=== PATIENT | male | born 1935 | race Caucasian/White ===

== ENCOUNTER → 2018-02-27 | Outpatient (CLI) | payer OTHER ==
[~2018-02-27] MED LIST: ACEON4 MG PO; ASPIRIN325 PO; ATENOLOL 25 MG25 M1 PO; HYDROCODON-ACE1 EACH PO; LEVOTHYROXIN0.088 MG PO; NIASPAN ER 101000 M1 PO; NIASPAN PO; NITROGLYCERIN0.4 MG PO; OSELB75 PO; PLAVIX 75 MG TA75 MG PO; ZOCOR 20 MG TAB20 M1 PO; ZOLOFT50 MG PO
== END ==
LOC: PUL 06:12
DX: J44.9 Chronic obstructive pulmonary disease, unspecified (principal)

== ENCOUNTER 2018-11-06 08:44 | Inpatient (IN) | payer OTHER ==
[~2018-11-06] VITALS: Ht 188 cm; Wt 99.6 kg
[2018-11-06] VITALS (16 sets, daily range): BP systolic 90–164; BP diastolic 43–98
--- NOTE | ~2018-11-06 | HC ---
[facility] [place] [address] CONSULTATION Name: LUIS BERMUDEZ Room #: 247-P ADM IN M.R.#: [id number] Admission: 11/06/18 Attend Phys: Carlos Lima MD Discharge: Date of : 33 Report #: [id number] THIS REPORT FOR: //name// CC: Carlos Lima DATE OF SERVICE: 11/07/2018 REASON FOR CONSULTATION: Acute kidney injury. HISTORY OF PRESENT ILLNESS: The patient is an 83-year-old who presented to his primary care physician on 11/05/2018 thinking that he has ingested his synthetic tooth. X-ray was done and this showed that the foreign body was in the small bowel with no evidence of small bowel obstructions or perforation. He represented to the office on 11/06/2018 reporting significant nausea and vomiting and was admitted and found to have small bowel obstruction. On presentation to the Emergency Room, his creatinine was 1.7. Last creatinine in our records was back in 2010 and this was in the normal range. The patient is known to have extensive past medical history including peripheral vascular disease, status post left femoral endarterectomy, status post cardiac bypass. He also had a right iliac stent. He is known to have hypertension. He was not aware of any previous kidney problems per the family members that were present when I evaluated him. The patient went to the OR and had a resection of his small bowel. Postoperatively, the patient's condition deteriorated and it does look like that he developed an aspiration. His creatinine has gone up to 2.0 after being hypotensive and receiving the contrast load. 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 PAST MEDICAL HISTORY: 1. Peripheral vascular disease. 2. Hypertension. 3. Coronary artery disease. 4. Hypothyroidism. 5. Post cholecystectomy. 6. Post CABG. 7. Post left femoral endarterectomy. 8. 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 9. Post right iliac stent. FAMILY HISTORY: Significant for hypertension. SOCIAL HISTORY: Family reported no drug or alcohol abuse. REVIEW OF SYSTEMS: Unable to obtain the review of systems from the patient as the patient is currently intubated. [address] [address] CONSULTATION Name: LUIS BERMUDEZ YUE Room #: 247-P [facility] IN M.R.#: [id number] Admission: 11/06/18 Attend Phys: Carlos Lima MD Discharge: Date of : 33 Report #: [id number] MEDICATIONS: 1. Levothyroxine. 2. Atenolol. 3. Simvastatin. 4. Alendronate. PHYSICAL EXAMINATION: GENERAL: When evaluated, the patient on Levophed 20 mcg. VITAL SIGNS: Blood pressure was 112/77, temperature was 36.5. ET tube present. HEAD AND NECK: Central lines present. CHEST: Decreased air entry bilaterally with crackles bilaterally. CARDIOVASCULAR: Regular with no rub detected. ABDOMEN: Surgical binder present. LOWER EXTREMITIES: +1 edema. LABORATORY DATA: Reviewed. White blood cell count 19.5. Sodium 137, potassium 4.7, chloride 104, bicarbonate 19, BUN 40, creatinine 2.0. CT scan reviewed. ASSESSMENT, IMPRESSION AND PLAN: 1. Acute kidney injury. 2. Status post intestinal surgery for a foreign body ingestion. 3. Extensive peripheral vascular disease with a concern of endoleak in his right common iliac stent. 4. His acute kidney injury is due to the nephrotoxic, hypotensive acute tubular necrosis. He received significant amount of contrast that has contributed to his rising creatinine. He has a baseline creatinine of 1.7 when he arrived into the Emergency Room. I will talk with Dr. Lima about his previous creatinine values. We will send appropriate acute kidney injury workup. 5. Continue with hemodynamic support including IV fluids, pressors. 6. I will reformulate his IV fluid to address his acidosis. 7. Continue with antibiotics for his aspiration pneumonitis. 8. Cardiology and interventional radiology are following regarding his right common iliac stent endoleak. 9. Discussed with his daughter, Lorelei at length. No dialysis is indicated at this point. We will continue to follow. By: 53 33 Umu Agustin MD /nt
[2018-11-06 09:17] LABS: BUN 38 mg/dL (7-18); CREATININE 1.7 mg/dL (0.7-1.3)
[2018-11-06] MEDS ORDERED: ZOLOFT25 MG PO (12:19)
[2018-11-06] MEDS ORDERED: ALENDRONATE SOD70 MG PO (12:20)
[2018-11-06 13:29] LABS: ALBUMIN 4.5 g/dL (3.4-5.0); ANION GAP 13 mmol/L (7-16); CALCIUM 10.8 mg/dL (8.5-10.1); CHLORIDE 101 mmol/L (98-107); CO2 26 mmol/L (21-32); GLUCOSE 126 mg/dL (74-106); POTASSIUM 4.2 mmol/L (3.5-5.1); SGOT 37 U/L (15-37); SGPT 46 U/L (30-65); SODIUM 140 mmol/L (136-145); TOTAL BILIRUBIN 2.4 mg/dL (<0.1-1.0); TOTAL PROTEIN 8.4 g/dL (6.4-8.2)
[2018-11-06 13:44] LABS: HEMATOCRIT 55.3 % (42.0-52.0); HEMOGLOBIN 19.3 gm/dL (14.0-18.0); MCH 34.7 pg (26.0-34.0); MCHC 34.9 g/dL (28.0-37.0); MCV 99.6 fL (80.0-100.0); RBC 5.56 mil/uL (4.50-6.00); RDW 13.7 % (10.5-14.5); WBC 14.7 thou/uL (4.0-11.0)
--- NOTE | 2018-11-06 14:36 | NUR ---
ADMITTED PT UNDER 'S CARE, DIRECT ADMISSION FROM MD'S OFFICE. ADMIT DX SBO DUE TO FOREIGN OBJECT INGESTION. PT ARRIVED IN W/C. AXOX4. FAIR HISTORIAN OF HIS HEALTH. PER PT, HE SWALLOWED IMPLANT TOOTH ON SUNDAY. VSS UPON ARRIVAL. PT WAS PUT ON NPO PER 'S ORDER. GENERAL SURGERY(SBO) AND IR (ENDOVASULAR STENT LEAK) WERE CONSULTED. AFTER BEING EVALUATED BY GENERAL SURGERY, EMERGENCY LAP POSSIBLE OPEN SURGERY WAS SCHEDULED. TALKED TO THE PT AND HIS DAIGHTER AT BEDSIDE. IV IS PRESENT ON LFA, NEWLY PUT IN 22G. PT WAS TAKEN DOWN TO SURGERY SHORTLY AFTER.
[2018-11-06 15:42] LABS: BE(vivo) -2.2 mmol/L (-2 to +3); HCO3 24.8 mmol/L (22.0-26.0); PCO2 49.5 mmHg (35.0-45.0); sO2 99.7 % (92.0-98.0)
[2018-11-06 15:44] LABS: pH 7.317 (7.360-7.450)
[2018-11-06 17:42] LABS: BE(vivo) -10.3 mmol/L (-2 to +3); HCO3 17.8 mmol/L (22.0-26.0); PCO2 46.8 mmHg (35.0-45.0); sO2 60.3 % (92.0-98.0)
[2018-11-06 17:43] LABS: PO2 38.1 mmHg (80.0-100.0); pH 7.198 (7.360-7.450)
[2018-11-06 18:27] LABS: BE(vivo) -11.1 mmol/L (-2 to +3); HCO3 18.9 mmol/L (22.0-26.0); PCO2 56.5 mmHg (35.0-45.0); sO2 68.9 % (92.0-98.0)
[2018-11-06 18:28] LABS: PO2 46.3 mmHg (80.0-100.0); pH 7.142 (7.360-7.450)
[2018-11-06 18:32] LABS: ABSOLUTE NEUTROPHILS 3.4 thou/uL (1.4-8.2); BASOPHILS 0.3 % (0.0-2.0); HEMATOCRIT 57.7 % (42.0-52.0); HEMOGLOBIN 19.5 gm/dL (14.0-18.0); LYMPHOCYTES 38.8 % (24.0-44.0); MCH 34.8 pg (26.0-34.0); MCHC 33.9 g/dL (28.0-37.0); MCV 102.8 fL (80.0-100.0); MONOCYTES 1.6 % (1.0-8.0); PLATELET COUNT 143 thou/uL (150-400); POLYS 58.3 % (36.0-66.0); RBC 5.62 mil/uL (4.50-6.00); RDW 13.9 % (10.5-14.5); WBC 5.9 thou/uL (4.0-11.0)
[2018-11-06 18:39] LABS: CREATININE 1.8 mg/dL (0.7-1.3); POTASSIUM 4.2 mmol/L (3.5-5.1)
[2018-11-06 18:45] LABS: ALBUMIN 3.2 g/dL (3.4-5.0); MAGNESIUM 1.7 mg/dL (1.8-2.4); TOTAL BILIRUBIN 1.9 mg/dL (<0.1-1.0); TOTAL PROTEIN 5.7 g/dL (6.4-8.2)
[2018-11-06 21:07] LABS: BE(vivo) -6.4 mmol/L (-2 to +3); HCO3 18.5 mmol/L (22.0-26.0); PCO2 35.8 mmHg (35.0-45.0); PO2 58.4 mmHg (80.0-100.0); pH 7.332 (7.360-7.450); sO2 88.8 % (92.0-98.0)
[2018-11-06 21:50] LABS: CALCIUM 7.8 mg/dL (8.5-10.1); CREATININE 1.7 mg/dL (0.7-1.3); POTASSIUM 3.8 mmol/L (3.5-5.1)
--- NOTE | 2018-11-06 23:00 | NUR ---
PT ADMITED TO ICU POST OP. ARRIVED ON LEVOPHED AND PROPOFOL. BP IN THE LOW 70S AND 80S. LEVOPHED TITRATED TO KEEP BP ABOVE 90. RADIAL ARTLINE IN PLACE. VENTURA CATH. DR. PETERS AT BEDSIDE UPON PT ARRIVAL. FAMILY AT BEDSIDE DURING THE NIGHT. WILL CONTINUE TO MONITOR.
[2018-11-07] VITALS (61 sets, daily range): BP systolic 93–133; BP diastolic 54–82
[2018-11-07 05:23] LABS: HCO3 15.5 mmol/L (22.0-26.0); PCO2 34.2 mmHg (35.0-45.0); PO2 75.5 mmHg (80.0-100.0); sO2 93.6 % (92.0-98.0)
[2018-11-07 05:24] LABS: pH 7.275 (7.360-7.450)
[2018-11-07 05:35] LABS: CALCIUM 7.6 mg/dL (8.5-10.1); POTASSIUM 4.7 mmol/L (3.5-5.1)
--- NOTE | 2018-11-07 05:43 | NUR ---
pt sedated on vent. propofol ongoing at 25mcgs. opens eyes, doesn't follow simple commands currently. low grade temp. morphine given for pain management. on levophed at 15 mcgs for bp, titrated during the night. hannon in place, output noted. 3 abd lap sites c/d/i. will continue to monitor patient
[2018-11-07 05:47] LABS: ABSOLUTE NEUTROPHILS 16.7 thou/uL (1.4-8.2); BASOPHILS 0.2 % (0.0-2.0); EOSINOPHILS 0.1 % (0.0-3.0); HEMATOCRIT 53.7 % (42.0-52.0); HEMOGLOBIN 17.9 gm/dL (14.0-18.0); LYMPHOCYTES 8.8 % (24.0-44.0); MCH 33.9 pg (26.0-34.0); MCHC 33.3 g/dL (28.0-37.0); MCV 101.6 fL (80.0-100.0); MONOCYTES 5.2 % (1.0-8.0); PLATELET COUNT 118 thou/uL (150-400); POLYS 85.7 % (36.0-66.0); RBC 5.29 mil/uL (4.50-6.00); RDW 13.8 % (10.5-14.5); WBC 19.5 thou/uL (4.0-11.0)
--- NOTE | 2018-11-07 08:33 | EKG ---
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 : 1935 Requested By: Izaiah Anglin Order Number: [id number] MD: Sherman Kenney Measurements Intervals [place] Rate: 119 P: 237 [place]: 93 QRS: 114 QRSD: 140 T: 36 QT: 432 QTc: 609 Interpretive Statements Baseline artifact limits interpretation Possible Sinus or ectopic atrial tachycardia RBBB and LPFB Compared to ECG 05/04/2014 14:20:45 Heart rate has increased Electronically Signed On 11-07-2018 8:32:59 FORMULATION TECHNICIAN by Sherman Kenney [email or web address] <ELECTRONICALLY SIGNED> By: Sherman Kenney MD, [facility] 11/07/18 0832 1804 180 Sherman Kenney MD, [facility] /EPI
[2018-11-07 09:14] LABS: BE(vivo) -8.2 mmol/L (-2 to +3); HCO3 17.1 mmol/L (22.0-26.0); PCO2 35.4 mmHg (35.0-45.0); PO2 118.4 mmHg (80.0-100.0); pH 7.301 (7.360-7.450)
--- NOTE | 2018-11-07 16:17 | NUR ---
CM ASSESSMENT: CASE OPENED FOR DC PLANNING. CLINICAL INFO REVIEWED. PT ADMITTED WITH SBO AFTER SWALLOWING PART OF HIS BRIDGE. PT IS POST EX LAP WITH ASPIRATION AND RESP FAILURE. ON PRESSORS AND VENT FIO2 100% AND 14 PEEP. PT'S DTR GEORGINA AT BEDSIDE. SHE IS AN RN AT [employer] MANY YEARS. SHE RELATES PT LIVES ALONE IN HOUSE, INDEPENDENT WITH ADLS, DRIVES, ACTIVE. CM TO FOLLOW.
--- NOTE | 2018-11-07 17:02 | O ---
[facility] [place] [address] OPERATIVE REPORT Name: LUIS BERMUDEZ Room #: 247-P ADM IN M.R.#: [id number] Admission: 11/06/18 Attend Phys: Carlos Lima MD Discharge: Date of : 33 Report #: [id number] THIS REPORT FOR: //name// CC: Carlos Lima MD DATE OF SERVICE: 11/06/2018 SURGEON: Manjeet Vences MD ADJUNCT ENGLISH INSTRUCTOR: None. PREOPERATIVE DIAGNOSES: 1. Small-bowel obstruction secondary to ingested foreign body. 2. Coronary artery disease. 3. Peripheral vascular disease. POSTOPERATIVE DIAGNOSES: 1. Small-bowel obstruction secondary to ingested foreign body. 2. Coronary artery disease. 3. Peripheral vascular disease. PROCEDURE: 1. Diagnostic laparoscopy. 2. Laparoscopic segmental small bowel resection. ANESTHESIA: General endotracheal anesthesia and local anesthetic. ESTIMATED BLOOD LOSS: 5 mL. SPECIMEN: Segment of small bowel/ileum. COMPLICATIONS: None appreciated. INDICATIONS FOR PROCEDURE: This is an 83-year-old male, patient of Dr. Carlos Lima, who inadvertently swallowed a dental appliance/tooth with bridge unknowingly 3 days ago. When he realized his tooth was gone, he was unable to find it. The patient developed abdominal distention with worsening nausea and vomiting over the past 2 days. He was seen in Dr. Lima's office where he underwent a KUB showing a foreign body located in the right lower quadrant of his abdomen that did not clear on a followup study today in Dr. Lima's office. The patient has since been admitted. CT revealed changes consistent with a small-bowel obstruction secondary to the foreign body located in the distal small bowel. 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 The case was discussed with Dr. Rowe [facility] [address] [place] [address] OPERATIVE REPORT Name: LUIS BERMUDEZ Room #: 247-P ADM IN ..#: [id number] Admission: 11/06/18 Attend Phys: Carlos Lima MD Discharge: Date of : 33 Report #: [id number] Anabel, who has managed the patient in the past and notes that the aneurysm is stable over the past several years with little to no concern of aneurysm rupture and plans for elective management in the future. The patient presents now for diagnostic laparoscopy with removal of the foreign body, possible bowel or colon resection. OPERATIVE FINDINGS: Upon entrance into the abdominal cavity, the bowel was distended. By running the bowel distally, I was able to identify a mass-like area where the bowel was proximally dilated and distally decompressed. A firm mass was palpable within the small bowel in this area. After delivering the mass, I was able to resect a short segment of small bowel (distal ileum) and perform a stapled 75 mm JORDAN stapled anastomosis that was tension free and palpably patent. No other significant intra-abdominal pathology was seen. At the conclusion of the operation, sponge, needle, and instrument counts were correct. Upon opening the specimen on the back table, the tooth with its associated bridge was found within the specimen. It had caused a significant inflammatory reaction in the wall of the bowel that caused the obstruction. Of note, the patient had an aspiration episode on induction in the operating room. Anesthesia suctioned a minimal amount of fluid through the patient's endotracheal tube (a few milliliters) and his oxygen saturations remained at or near 100% throughout the entire operation. Postoperatively, the patient had difficulty with tachypnea and hypoxia. His ABGs showed a significant acidosis and he required reintubation in the recovery room. DESCRIPTION OF PROCEDURE IN DETAIL: After the risks, benefits, and expectations of the operation were discussed in detail with the patient and his daughter, informed consent was obtained. The patient was identified in the preoperative holding area. He was given IV antibiotics as documented in the chart in line with SCIP metrics. The patient was then taken to the operating room and he was placed in the supine position. SCDs were placed on the patient's bilateral lower extremities and pneumatic compression was initiated. The patient was then given IV sedation and while attempting to intubate, the patient had an aspiration episode. Several 100 mL of fluid was suctioned from the patient's endogastric tube. The patient was stabilized with good oxygen saturations and maintenance of his blood pressure. He was ultimately intubated. The patient's abdomen was then prepped and draped in the standard sterile fashion. A time-out was performed to identify the correct patient and procedure. Local anesthetic was infiltrated into the skin and subcutaneous tissue infraumbilically where a small vertical incision was made. The fascia was grasped and a small fascial incision was made. A 5 mm Visiport was placed intraperitoneally with a 0-degree angled laparoscope. Pneumoperitoneum was achieved with insufflation of carbon dioxide to 15 mmHg. A 30-degree angled [facility] [address] [place] [address] OPERATIVE REPORT Name: LUIS BERMUDEZ Room #: 247-P ADM IN M.R.#: [id number] Admission: 11/06/18 Attend Phys: Carlos Lima MD Discharge: Date of : 33 Report #: [id number] laparoscope was then inserted. A suprapubic 5 mm and left lower quadrant 5 mm port were each placed under direct visualization after local anesthetic was infiltrated into the skin and subcutaneous tissue and appropriately sized incisions were made. Findings are as noted above. The patient was placed in the Trendelenburg position, rotated slightly to his left. The bowel was run from the proximal aspect distally (from dilated bowel to nondilated bowel). The point of obstruction was identified. The small bowel in this area was free and able to be delivered to the midline of the abdomen. Local anesthetic was infiltrated into the skin and subcutaneous tissue where the vertical midline incision was extended inferiorly several centimeters. Electrocautery was used to dissect through the subcutaneous tissue down to fascia. The fascia was then opened along the length of the incision, as was the peritoneum directly over the nonconductive visual entry port. The Tank wound protector was then placed and the small bowel was grasped and delivered externally. The mass was palpably patent. Decision was made to resect this portion of bowel as the mass did not move within the lumen of the bowel. Windows were made in the mesentery with electrocautery above and below the mass in the planned area of transection. Blue load JORDAN staplers were used to staple and divide the small bowel in this area. The mesentery was divided with the EnSeal energy device with good hemostasis. The section of bowel was then removed to be sent for specimen. A [id number] functional end-to-end anastomosis was then created with the 75 mm JORDAN stapler. The antimesenteric corners of the staple line were aligned and a 3-0 PDS suture was used to approximate the bowel. The corners of the antimesenteric staple line were then excised and each limb of the blue load 75 mm JORDAN stapler was passed into each limb of the small bowel. The stapler was then connected and fired to create an antimesenteric anastomosis. The common enterotomy was approximated with Allis clamps. A blue load 60 mm TX stapler was then used to staple off the common enterotomy. The excess tissue was excised and the stapler was removed. The anastomosis was palpably patent. A simple interrupted 3-0 PDS suture was placed at the crotch of the anastomosis for reinforcement. The mesenteric window was closed with a running 3-0 PDS suture to prevent internal herniation. The staple line was imbricated with interrupted 3-0 PDS sutures as well. There was no tension on the anastomosis. The connected bowel was then replaced within the abdominal cavity. The Tank cap was then placed over the wound protector and the abdominal cavity was reinsufflated. The abdominal cavity was entered laparoscopically and the anastomosis was stable. There was good hemostasis within the abdominal cavity. No other significant pathology was seen. The 5 mm ports were then removed under direct visualization. The Tank wound protector was removed from the abdominal cavity. A running 0 PDS suture was then used to close the lower midline fascia. A running subcuticular 4-0 Monocryl suture and Dermabond were used to close the skin incision. The port site incisions were closed with interrupted [address] [address] OPERATIVE REPORT Name: LUIS BERMUDEZ Room #: 247-P [facility] IN M.R.#: [id number] Admission: 11/06/18 Attend Phys: Carlos Lima MD Discharge: Date of : 33 Report #: [id number] subcuticular 4-0 Monocryl sutures and Dermabond as well. The patient tolerated the procedure well. He was awakened, extubated, and taken to the recovery room in stable condition with no apparent intraoperative complications. The patient did require reintubation in the recovery room by Anesthesia after he was found to be tachypneic and audibly wheezing. The patient will be transferred to the Intensive Care Unit for respiratory and fluid monitoring. <ELECTRONICALLY SIGNED> By: Manjeet Vences MD, FACS 11/07/18 1702 180 183 Manjeet Vences MD, FACS /nt
[2018-11-07 17:32] LABS: URINE BLOOD TRACE (Negative); URINE CLARITY CLEAR; URINE COLOR YELLOW; URINE GLUCOSE-RANDOM* NEGATIVE (Negative); URINE KETONES TRACE (Negative); URINE LEUKOCYTES NEGATIVE (Negative); URINE NITRITE NEGATIVE (Negative); URINE PROTEIN (DIPSTICK) 1+ (Negative); URINE SPECIFIC GRAVITY 1.025 (1.005-1.035)
[2018-11-07 17:35] LABS: ICTOTEST (BILI CONFIRMATORY) Negative (Negative); URINE BILIRUBIN NEGATIVE (Negative); URINE CREATININE-RANDOM* 275.8 mg/dL
[2018-11-07 17:40] LABS: URINE SODIUM-RANDOM* <5 mmol/L
[2018-11-07 17:45] LABS: BACTERIA 1-9 Few /HPF (None Seen); CASTS None Seen /LPF (None Seen); CRYSTALS None Seen /LPF (None Seen); SQUAMOUS None Seen /LPF (0-3); URINE RBC 0-2 Rare /HPF (0-2); URINE WBC None Seen /HPF (0-5)
--- NOTE | 2018-11-07 19:05 | NUR ---
ASSUMED CARE OF PT AT 0645. TITRATE LEVO AND PROPOFOL GTT. ATTEMPT TO WEAN DOWN VENT SETTINGS. WAKES, FSC DOES NOT NOD YES/NO. FAMILY AT BEDSIDE, WANT TO MEET WITH DR PETERS TOMORROW MORNING. 1L FLUID BOLUS TO HELP KEEP MAP >65. NO PROGRESS TOWARD POC.
[2018-11-08] VITALS (22 sets, daily range): BP systolic 87–132; BP diastolic 48–73
--- NOTE | 2018-11-08 03:15 | NUR ---
AT APPROXIMATELY 0200AM, PT WENT TACHY,HRIN THE 150S. BP PRESSURES DROPPED TO THE 60S. BEFOREHAND PT HR WERE IN THE 90S, AND BP IN THE LOW 100S WHILE ON 5MCGS OF LEVOPHED. AND EKG WAS OBTAIN. CALLED DR. PETERS AND SADIE. ORDERS WERE RECIEVED FOR AMIO GTT.WILL CONTINUE TO MONITOR PT.
[2018-11-08 06:09] LABS: ALBUMIN 2.3 g/dL (3.4-5.0); CREATININE 1.8 mg/dL (0.7-1.3); PHOSPHORUS 1.9 mg/dL (2.5-4.9); POTASSIUM 3.5 mmol/L (3.5-5.1)
--- NOTE | 2018-11-08 06:21 | NUR ---
PT SEDATED ON VENT. TOLERATING VENT SETTINGS. MORPHINE GIVEN FOR COMFORT. LOW GRADE TEMP. FOLLOW SIMPLE COMMANDS ON SEDATION VACATION. ON PROPOFOL AT 35 MCGS/KG/HR. ON LEVOPHED AT 5 MCGS/HR FOR BP SUPPORT. URINE OUTPUT NOTED. RESTRAINST IN PLACE. ON AMIO GTT AT 1MG/MIN. WILL CONTINUE TO MONITOR.
[2018-11-08 06:39] LABS: HEMATOCRIT 45.3 % (42.0-52.0); MCH 33.5 pg (26.0-34.0); MCV 101.5 fL (80.0-100.0); RBC 4.46 mil/uL (4.50-6.00); RDW 14.2 % (10.5-14.5); WBC 22.1 thou/uL (4.0-11.0)
[2018-11-08 06:40] LABS: HEMOGLOBIN 14.9 gm/dL (14.0-18.0)
[2018-11-08 06:43] LABS: CREATININE 1.8 mg/dL (0.7-1.3); POTASSIUM 3.5 mmol/L (3.5-5.1)
[2018-11-08 07:18] LABS: ABSOLUTE NEUTROPHILS 19.4 thou/uL (1.4-8.2)
[2018-11-08 07:20] LABS: PLATELET COUNT 88 thou/uL (150-400)
[2018-11-08 07:31] LABS: BE(vivo) 0.7 mmol/L (-2 to +3); HCO3 25.1 mmol/L (22.0-26.0); PCO2 39.5 mmHg (35.0-45.0); PO2 70.5 mmHg (80.0-100.0); pH 7.421 (7.360-7.450); sO2 94.5 % (92.0-98.0)
--- NOTE | 2018-11-08 08:43 | EKG ---
[address] [place] [address] ELECTROCARDIOGRAM REPORT Name: LUIS BERMUDEZ Room #: 247-P ADM IN M.R.#: [id number] Admission: 11/06/18 Attend Phys: Carlos Lima MD Discharge: Date of : 33 Report #: [id number] THIS REPORT FOR: //name// [facility] Test Date: 2018-11-08 Test Time: 02:12:54 Pat Name: LUIS BERMUDEZ Department: Room: 247 P Gender: M Supervisor Long Goods: JUDI : 1935 Requested By: Carlos Lima Order Number: [id number] MD: Sherman Kenney Measurements Intervals [place] Rate: 97 P: 84 TN: 175 QRS: 101 QRSD: 132 T: -43 QT: 367 QTc: 466 Interpretive Statements Sinus rhythm Right bundle branch block Compared to ECG 11/06/2018 18:04:29 Heart rate has slowed Electronically Signed On 11-08-2018 8:42:53 CREDIT CORRESPONDENCE CLERK by Sherman Kenney [email or web address] <ELECTRONICALLY SIGNED> By: Sherman Kenney MD, [facility] 11/08/1842 1 1 Sherman Kenney MD, [facility] /EPI
--- NOTE | 2018-11-08 09:24 | 2DMMODE ---
[facility] [place] [address] 2 D/M-MODE ECHOCARDIOGRAM Name: JEIMYYANELILUISLUIS [place] Room #: 247-P [facility] IN M.R.#: [id number] Admission: 11/06/18 Attend Phys: Carlos Lima, Discharge: Date of : 33 Date of Service: 11/08/18 0924 Report #: [id number] THIS REPORT FOR: //name// APPROVED REPORT Study performed: 11/08/2018 08:32:18 EXAM: Comprehensive 2D, Doppler, and color-flow Echocardiogram Patient Location: ICU Room #: [facility] Status: routine BSA: 2.28 HR: 77 bpm BP: 107/68 mmHg Rhythm: NSR Other Information Study Quality: Poor/no apical window/limited parasternal window Technically limited study due to patient on vent in ICU.. Indications SVT. History of CABG, HTN 2D Dimensions IVSd: 11.47 (7-11mm) LVOT Diam: 24.37 (18-24mm) LVDd: 39.04 mm PWd: 9.64 (7-11mm) Ascending Ao: 33.53 (22-36mm) LVDs: 27.93 (25-40mm) Aortic Root: 37.31 mm Aortic Valve AoV Peak Michael.: 0.91 m/s AO Peak Gr.: 3.33 mmHg Mitral Valve E/A Ratio: 0.7 MV Decel. Time: 276.33 ms MV E Max Michael.: 0.40 m/s MV A Michael.: 0.56 m/s MV PHT: 80.14 ms Pulmonary Valve PV Peak Michael.: 0.81 m/s PV Peak Gr.: 2.61 mmHg [facility] [address] [address] 2 D/M-MODE ECHOCARDIOGRAM Name: LUIS BERMUDEZ [place] Room #: [address] [place] [address] IN .R.#: [id number] Admission: 11/06/18 Attend Phys: Carlos Lima, Discharge: Date of : 33 Date of Service: 11/08/18 0924 Report #: [id number] Tricuspid Valve TR Peak Michael.: 2.18 m/s RAP Estimate: 15.00 mmHg TR Peak Gr.: 18.95 mmHg PA Pressure: 34.00 mmHg Left Ventricle The left ventricle is normal size. Regional wall motion is not well visualized but grossly normal. There is normal left ventricular wall thickness. Left ventricular systolic function appears grossly normal. LVEF is 55%. Mild diastolic dysfunction is present (impaired relaxation pattern). Right Ventricle The right ventricle is normal size. The right ventricular systolic function is normal. Atria The left atrium size is normal. The right atrium size is normal. Aortic Valve The aortic valve is sclerotic. Trace to mild aortic regurgitation. There is no aortic valvular stenosis. Mitral Valve Mild mitral annular calcification. Trace mitral regurgitation. Tricuspid Valve The tricuspid valve is normal in structure. Trace to mild tricuspid regurgitation. Estimated PAP is 25mmHg. Pulmonic Valve Moderate pulmonic regurgitation. Great Vessels The aortic root is normal in size. The ascending aorta is normal in size. IVC is dilated and collapses <50% with inspiration. Pericardium There is no pericardial effusion. <Conclusion> Technically limited study [facility] [address] [place] [address] 2 D/M-MODE ECHOCARDIOGRAM Name: LUIS BERMUDEZ [place] Room #: [facility] IN M.R.#: [id number] Admission: 11/06/18 Attend Phys: Carlos Lima, Discharge: Date of : 33 Date of Service: 11/08/18923 Report #: [id number] Left ventricular systolic function appears grossly normal. Regional wall motion is not well visualized but grossly normal. LVEF is 55%. The aortic valve is sclerotic. Trace to mild aortic regurgitation, no stenosis. Mild mitral annular calcification. Trace mitral regurgitation. Trace to mild tricuspid regurgitation. Estimated pulmonary artery pressure of 25mmHg. There is no pericardial effusion. <ELECTRONICALLY SIGNED> By: Sherman Kenney MD, [facility] 11/08/18923 3 0924 Sherman Kenney MD, FACC /INF
[2018-11-08 17:32] LABS: ALBUMIN 2.2 g/dL (3.4-5.0); CREATININE 1.6 mg/dL (0.7-1.3); PHOSPHORUS 2.8 mg/dL (2.5-4.9); POTASSIUM 3.3 mmol/L (3.5-5.1)
--- NOTE | 2018-11-08 18:30 | NUR ---
END OF SHIFT NOTE. PT REMAINS ON VENT. PEEP 14 TOLORATING WELL. 02 WEANED DOWN TO 60%. LEVOPHED AT 1MCG/MIN. MORE STABLE THIS PM. DIURESED FROM LASIX. REPLACING K THIS PM. SURGICAL SITE STABLE.
[2018-11-09] VITALS (72 sets, daily range): BP systolic 98–134; BP diastolic 57–83
[2018-11-09 01:51] LABS: BE(vivo) 0.2 mmol/L (-2 to +3); HCO3 24.3 mmol/L (22.0-26.0); PCO2 37.4 mmHg (35.0-45.0); PO2 61.6 mmHg (80.0-100.0); sO2 92.4 % (92.0-98.0)
[2018-11-09 05:49] LABS: ABSOLUTE NEUTROPHILS 17.1 thou/uL (1.4-8.2); BASOPHILS 0.1 % (0.0-2.0); HEMATOCRIT 39.2 % (42.0-52.0); MCH 33.6 pg (26.0-34.0); MCHC 33.1 g/dL (28.0-37.0); MCV 101.5 fL (80.0-100.0); MONOCYTES 4.5 % (1.0-8.0); PLATELET COUNT 78 thou/uL (150-400); POLYS 87.4 % (36.0-66.0); RBC 3.86 mil/uL (4.50-6.00); WBC 19.6 thou/uL (4.0-11.0)
[2018-11-09 05:52] LABS: BE(vivo) 0.5 mmol/L (-2 to +3); HCO3 24.3 mmol/L (22.0-26.0); PCO2 36.4 mmHg (35.0-45.0); PO2 70.1 mmHg (80.0-100.0); pH 7.442 (7.360-7.450); sO2 94.8 % (92.0-98.0)
[2018-11-09 05:56] LABS: ALBUMIN 2.1 g/dL (3.4-5.0); CALCIUM 6.7 mg/dL (8.5-10.1); CREATININE 1.4 mg/dL (0.7-1.3); PHOSPHORUS 2.4 mg/dL (2.5-4.9); POTASSIUM 3.5 mmol/L (3.5-5.1)
[2018-11-09 06:43] LABS: LARGE PLATELETS OCCASIONAL; PLATELET ESTIMATE DECREASED
--- NOTE | 2018-11-09 07:52 | NUR ---
PT SEDATED ON 45 MCGS OF PROPOFOL. NO APPARENT PAIN. FOLLOW SIMPLE COMMANDS. AFEBRILE. OFF LEVOPHED AT 0430 AM. BP STABLE. NG IN PLACE, OUTPUT NOTED. ABD LAPSITE INTACT AND DRY. URINE OUTPUT NOTED. FREQUENT TURNS AND ORAL CARE. AGB RESULTS CALLED INTO DR. PETERS. WILL CONTINUE TO MONITOR.
[2018-11-10] VITALS (27 sets, daily range): BP systolic 113–145; BP diastolic 54–75
[2018-11-10 05:22] LABS: ALBUMIN 2.1 g/dL (3.4-5.0); CALCIUM 6.7 mg/dL (8.5-10.1); CREATININE 1.3 mg/dL (0.7-1.3); PHOSPHORUS 2.2 mg/dL (2.5-4.9); POTASSIUM 3.2 mmol/L (3.5-5.1)
--- NOTE | 2018-11-10 06:24 | NUR ---
PT REMAINS STABLE IN THIS SHIFT. CONTINUE TO BE ON VENT AND LIGHTLY SEDATED. FOLLOW FEW COMMANDS ONCE LIGHTEN UP PROPOFOL. RHYTHM AND BP REMAIN STABLE. ETT/NGT REMAIN INPLACE ANC CONTINUE TO FUNCTION PROPERLY. VENTURA TO DD. HE MADE 1450 CC WITH IN 12 HRS. SLOWLY PROGRESSING TOWARD GOALS.
[2018-11-10 08:41] LABS: BE(vivo) 0.5 mmol/L (-2 to +3); HCO3 23.8 mmol/L (22.0-26.0); PCO2 34.4 mmHg (35.0-45.0); PO2 72.3 mmHg (80.0-100.0); pH 7.458 (7.360-7.450); sO2 95.4 % (92.0-98.0)
[2018-11-10 17:35] LABS: MAGNESIUM 2.5 mg/dL (1.8-2.4); POTASSIUM 3.3 mmol/L (3.5-5.1)
--- NOTE | 2018-11-10 19:23 | NUR ---
END OF SHIFT NOTE. PT MEDICATED X 1 WITH MS FOR PAIN TODAY. SEDATED LIGHTLY ON DIPRIVAN. VSS. DIURESING. CALLED DR. BROWER [facility] THIS EVENING. AWAITING CALL BACK. REMIANS ON 10 OF PEEP ON THE VENT.
[2018-11-11] VITALS (25 sets, daily range): BP systolic 133–172; BP diastolic 59–91
[2018-11-11 05:36] LABS: ALBUMIN 2.3 g/dL (3.4-5.0); CALCIUM 6.8 mg/dL (8.5-10.1); CREATININE 1.1 mg/dL (0.7-1.3); PHOSPHORUS 2.3 mg/dL (2.5-4.9); POTASSIUM 3.4 mmol/L (3.5-5.1)
--- NOTE | 2018-11-11 06:19 | NUR ---
END OF SHIFT OF SUMMARY: Pt has remained stable throughout this shift. Monitor remains sinus rhythm, sinus bradycardia with intermittent BBB. Heart rates 55-70. Pt remains on vent with FiO2 50% and peep 10, sat 96-100%. Lungs remain clear, diminished at bases. NG has scant amount bile drainage. Bowel sounds remain hypoactive. Laporotomy incision are clean, dry and intact. Urine output adequate. Pt spontaneously opens eyes, able to follow simple commands though very weak, nods yes/no appropriately.
[2018-11-11 11:25] LABS: BE(vivo) 2.1 mmol/L (-2 to +3); HCO3 25.6 mmol/L (22.0-26.0); PCO2 36.6 mmHg (35.0-45.0); PO2 72.2 mmHg (80.0-100.0); pH 7.462 (7.360-7.450); sO2 95.4 % (92.0-98.0)
--- NOTE | 2018-11-11 11:50 | NUR ---
DR. CAMEJO HERE. EXTUBATED PER RT. 40% FACE SHIELD.
--- NOTE | 2018-11-11 19:54 | NUR ---
End of shift note. Pt extubated today. Some hemoptisis noted. chest xray done. dr. espino aware. vss. neuro sluggish speech but intact.
[2018-11-12] VITALS (23 sets, daily range): BP systolic 121–176; BP diastolic 65–96
[2018-11-12 05:37] LABS: ALBUMIN 2.2 g/dL (3.4-5.0); CALCIUM 6.8 mg/dL (8.5-10.1); CREATININE 1.1 mg/dL (0.7-1.3); PHOSPHORUS 2.9 mg/dL (2.5-4.9); POTASSIUM 3.8 mmol/L (3.5-5.1)
[2018-11-12 05:40] LABS: HEMATOCRIT 41.6 % (42.0-52.0); HEMOGLOBIN 13.8 gm/dL (14.0-18.0); MCH 33.3 pg (26.0-34.0); MCHC 33.1 g/dL (28.0-37.0); MCV 100.6 fL (80.0-100.0); RBC 4.14 mil/uL (4.50-6.00); RDW 13.5 % (10.5-14.5); WBC 11.1 thou/uL (4.0-11.0)
--- NOTE | 2018-11-12 06:24 | NUR ---
AOX3, CONFUSED AT TIMES. APPROPIATE, RESTLESS DURING THE NIGHT. TALKED TO BUSINESS SERVICES ADMINISTRATOR MEDS ORDERED AND GIVEN WITH LITTLE RELIEF. ON OPTIFLOW AT 55% FIO2, SATS ABOVE 90%. AFEBRILE, VSS. VENTURA IN PLACE, OUTPUT NOTED. NG TO LIS. ABD INCISIONS C/D/I.NO COMPLAINS PRESENTLY. PT SLOWLY PROGRESSING TOWARDS GOALS. WILL CONTINUE TO MONITOR.
--- NOTE | 2018-11-12 08:33 | NUR ---
ASSESSMENT COMPLETED AT SHIFT CHANGE, SEE ASSESSMENT FOR DETAILS. ALERT/ORIENTED, SOMETIMES FORGETFUL, DENIES PAIN, SB, OPTIFLOW-LITERS/MIN-46, TAKING DEEP BREATHS/COUGHING AND/OR USING INCENTIVE SPIROMETER WHILE SPLINTING ABD, NG WITH BILE DRAINAGE, ABD SOFT, VENTURA WITH ADEQUATE URINE OUTPUT.
--- NOTE | 2018-11-12 15:54 | NUR ---
PT UP TO CHAIR WITH USE OF GAIT BELT AND 2 ASSIST. WITH COAXING AND PHYSICAL SUPPORT, PT ABLE TO BRIEFLY STRAIGHTEN HIS KNEES DURING TRANSFER. UP IN CHAIR 20 MINUTES THEN BACK TO BED WITH SUPPORT OF 2-3 RN'S. PT CONTINUING TO TAKE DEEP BREATHS AND/OR USE INCENTIVE SPIROMETER. SEVERAL FAMILY MEMBERS PRESENT TO VISIT AND PROVIDE PT SUPPORT. PT DOZING THIS AFTERNOOON. SLOWLY PROGRESSING.
[2018-11-13] VITALS (23 sets, daily range): BP systolic 106–171; BP diastolic 67–89
[2018-11-13 05:53] LABS: HEMATOCRIT 43.6 % (42.0-52.0); MCH 34.7 pg (26.0-34.0); MCHC 34.5 g/dL (28.0-37.0); MCV 100.6 fL (80.0-100.0); RBC 4.33 mil/uL (4.50-6.00); RDW 13.5 % (10.5-14.5); WBC 10.3 thou/uL (4.0-11.0)
[2018-11-13 06:08] LABS: ALBUMIN 2.3 g/dL (3.4-5.0); CALCIUM 7.2 mg/dL (8.5-10.1); CREATININE 0.9 mg/dL (0.7-1.3); MAGNESIUM 2.4 mg/dL (1.8-2.4); POTASSIUM 3.8 mmol/L (3.5-5.1); TOTAL BILIRUBIN 1.9 mg/dL (<0.1-1.0); TOTAL PROTEIN 5.4 g/dL (6.4-8.2)
--- NOTE | 2018-11-13 06:58 | NUR ---
Pt rested off and on through the night with stable VS. PRN morphine given with desired effect achieved. SpO2 adequate on current FiO2 and pt encouraged frequently with pulmonary toileting. Large amount of urine output for shift and NGT drainage minimal with no c/o nausea. Am lab results noted, continue with POC.
--- NOTE | 2018-11-13 09:19 | NUR ---
Nutrition: NG still with drainage. NPO x 7 days. If unable to remove NG tube and advance diet today, REC start standard TPN to run at 80 ML/hr if pt able to tolerate this amount of fluid. Noted ST eval is ordered. Pt extubated on 11/11.
--- NOTE | 2018-11-13 12:18 | NUR ---
PLACED CALL TO DR. PARKER PER DR. CAMEJO'S RECOMMENDATION TO NOTIFY HIM OF PT'S HAVING "A RUSHING AIR" SOUND IN HIS LEFT EAR. PT'S DAUGHTER REQUESTING DR. PARKER TO COME TO VIEW PT'S EAR.
--- NOTE | 2018-11-13 13:40 | NUR ---
CALLED DR. PARKER'S OFFICE. SPOKE WITH NURSE, SHE STATED SHE WOULD PAGE DR. PARKER REGARDING DAUGHTER-GEORGINA'S REQUEST TO OBSERVE PT AND ASSESS HIS EAR.
--- NOTE | 2018-11-13 19:15 | NUR ---
PT PROGRESSED TODAY. GENERALLY WEAK HOWEVER PT ABLE TO USE BOTH HANDS TO OBTAIN WATER CUP/ORAL SWAB ON OWN TO RINSE HIS MOUTH. L UPPER EXTREMITY SLIGHTLY WEAKER AND SLIGHTLY LEANS TO L SIDE OF CHAIR. PT IN CHAIR AND REPOSITIONED CHAIR FREQUENTLY PER PT PREFERENCE. COMPLEXION IMPROVING TO PINK. DENIES PAIN, SR WITH BBB, TAKING DEEP BREATHS & HAS STRONG COUGH, USING INCENTIVE SPIROMETER, PULLING UP TO 1,250 EFFECTIVELY. BLOODY SPUTUM A COUPLE OF TIMES TODAY- LOVENOX HELD PER MD ORDER. LARGE AMOUNT URINE OUTPUT AFTER LASIX IV. FAMILY PRESENT PROVIDING MUCH APPROPIATE SUPPORT.
[2018-11-14] VITALS (23 sets, daily range): BP systolic 84–132; BP diastolic 54–78
--- NOTE | 2018-11-14 05:11 | NUR ---
PT AOX4. DENIES PAIN. DENIES SOA WHILE IN BED. ON OPTIFLOW, FIO2 60%. SATS ABOVE 90% DURING THE NIGHT. VSS. AFEBRILE. ADEQUATE URINE OUTPUT NOTED. NG TO LIS, OUTPUT NOTED. NO COMPLAINS PRESENTLY. PT SLOWLY PROGRESSING TOWARDS GOALS. WILL CONTINUE TO MONITOR.
[2018-11-14 06:17] LABS: ALBUMIN 2.4 g/dL (3.4-5.0); CALCIUM 7.3 mg/dL (8.5-10.1); CREATININE 1.1 mg/dL (0.7-1.3); MAGNESIUM 2.3 mg/dL (1.8-2.4); PHOSPHORUS 2.4 mg/dL (2.5-4.9); POTASSIUM 3.6 mmol/L (3.5-5.1); TOTAL BILIRUBIN 1.7 mg/dL (<0.1-1.0); TOTAL PROTEIN 5.2 g/dL (6.4-8.2)
--- NOTE | 2018-11-14 12:08 | PATH ---
[facility] [place] [address] PATHOLOGY RPT PROCEDURE Name: LUIS BERMUDEZ YUE Room #: 247-P ADM IN M.R.#: [id number] Admission: 11/06/18 Date of : 31 Discharge: Report #: [id number] Path Case #: [id number] [facility] Accession Number: [id number] . 01 Material submitted: . SMALL BOWEL CONTAINING FOREIGN BODY . 01 Clinical history: . Small bowel obstruction secondary to swallowing foreign body . 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 - Multiple tumor deposits in the gisella-ileal fat the greatest mesuring 0.8cm with perineural invasion and suspicious for vascular/lymphatic invasion. - Proximal and distal margings are free. - Acute deep penetrating ulceration with acute inflammatory exudate secondary to the foreign object. - See comment. (NGOZI:parker; 11/13/2018) INÉS/11/13/2018 . 02 Comment: Immunoperoxidase stains reveal AE1/AE3 positive, chromogranin positive, synaptophysin positive, CK20 negative, CDX2 positive, and Ki67 is 5%. . This case was also reviewed by Dr. Candice Dupree. This case was also discussed with Dr. Carlos Parker on 11/13/2018 at 11 am. (SHA:parker; 11/13/2018) . . Surgical Pathology Cancer Case Summary . JEJUNUM AND ILEUM NEUROENDOCRINE TUMOR . Procedure ___ Segmental resection, small intestine . Tumor Site (Notes A and B) ___ Small intestine, not otherwise specified . Tumor Size (Note C) Greatest dimension (centimeters): 3 cm (specify size of largest tumor if multiple tumors are present) [place] [address] PATHOLOGY RPT PROCEDURE Name: LUIS BERMUDEZ Room #: 247-P [facility] IN [facility].#: [id number] Admission: 11/06/18 Date of : 33 Discharge: Report #: [id number] Path Case #: [id number] . Tumor Focality ___ Unifocal . Histologic Type and Grade (Notes D and E) ___ G1: Well-differentiated neuroendocrine tumor . Mitotic Rate (Note E) ___ <2 mitoses/2mm2 . Ki-67 Labeling Index (Note E) ___ 3% to 20% + Specify Ki-67 percentage: 5% . Tumor Extension ___ Tumor invades through the muscularis propria into subserosal tissue without penetration of overlying serosa . Margins ___ All margins are uninvolved by tumor Margins examined: Proximal and distal + Distance of tumor from closest margin (millimeters or centimeters): 2.5 cm . Proximal Margin ___ Uninvolved by tumor . Distal Margin ___ Uninvolved by tumor . Radial or Mesenteric Margin (Note F) ___ Cannot be assessed . Other Margin(s) (required only if applicable) ___ Cannot be assessed . Lymphovascular Invasion ___ Suspicious . + Perineural Invasion + ___ Present . Large Mesenteric Masses (>2 cm) (Note G) ___ Not identified . Regional Lymph Nodes Number of Lymph Nodes Involved: Zero Number of Lymph Nodes Examined: One [address] [address] PATHOLOGY RPT PROCEDURE Name: LUIS BERMUDEZ YUE Room #: 247-P [facility] IN ..#: [id number] Admission: 11/06/18 Date of : 31 Discharge: Report #: [id number] Path Case #: [id number] . Pathologic Stage Classification (pTNM, AJCC 8th Edition) (Note G) TNM Descriptors (required only if applicable) (select all that apply) ___ Not applicable . Primary Tumor (pT) ___ pT3: Invades through the muscularis propria into subserosal tissue without penetration of overlying serosa . Regional Lymph Nodes (pN) Distant metastasis - Not applicable . + Additional Pathologic Findings (select all that apply) (Note H) + ___ Other (specify): Six small deposits, the largest one measures 0.8 cm in greatest dimension in the gisella-ileal fat. . (SHA:high density finishing operator; 11/13/2018) . 02 Electronically signed: . Hai Sanz MD, Pathologist NPI- [id number] . 01 Gross description: . The specimen is received in formalin, labeled "Juancho, Luis, small bowel containing foreign body" and consists of an unoriented previously opened segment of small intestine measuring 8.0 cm in length and 2.0 cm in diameter upon reapproximation. The serosa is smith-fernandez and smooth with a puckered area (inked blue) measuring 1.8 x 1.0 cm which extends 1.8 cm from the nearest stapled margin. Both margins are closed with teresa. There is gisella-ileal fat lining the entire specimen measuring up to 1.8 cm. The mucosa is fernandez with a roughened and raised area (tumor mass) measuring 3.0 x 1.5 cm and extends from the margins as follows: 3.5 cm from one stapled margin and 2.5 cm from the other stapled margin. Sectioning through this area reveals a markedly fibrous/thickened wall which measures up to 1.5 cm and grossly appears to abut the blue inked serosa. Sectioning and palpation the gisella-ileal tissue reveals no grossly identifiable lymph node candidates but there are possible tumor deposits. . Also present in the container is a metallic device/foreign object measuring 2.0 x 1.2 x 1.1 cm. Gross photos are taken and financial foundations representative sections are submitted as follows: . A1-A2: Margins A3-A4: Pipeline Engineer thickened/fibrous wall (SDY; 11/08/2018) . After initial microscopic examination additional sections are sent as [address] [address] PATHOLOGY RPT PROCEDURE Name: LUIS BERMUDEZ Room #: 247-P ADM IN M.R.#: [id number] Admission: 11/06/18 Date of : 33 Discharge: Report #: [id number] Path Case #: [id number] follows: . A5-A11: Remainder of tumor mass A12-A13: Possible tumor deposits A14-A20: Entire gisella-ileal tissue for microscopic lymph node identification (SDY; 11/11/2018) SYU/SYU . 02 Pathologist provided ICD-10: C7A.1 . 02 CPT . 503445, U32144, M38246, [id number] Specimen Comment: A courtesy copy of this report has been sent to Specimen Comment: [phone], . Specimen Comment: Report sent to / DR PARKER Specimen Comment: A duplicate report has been generated due to demographic updates. Performed at: [address] [facility], [place] [id number] MD Michael Connor MD Phone: [phone] Performed at: [address] [facility] [id number] MD Kamilah Duarte MD Phone: [phone]
[2018-11-15] VITALS (20 sets, daily range): BP systolic 99–139; BP diastolic 52–87
--- NOTE | 2018-11-15 01:51 | NUR ---
ASSUMED CARE OF PT AT 1900. PT ALERT AND ORIENTED X4. ABLE TO FOLLOW COMMANDS AND ATTEMPTS TO HELP WITH TURNS IN BED. PATIENT HAS DENIED ANY PAIN THROUGH THE NIGHT. SR ON THE MONITOR WITH BBB. PT HAS HAD X2 SMALL MAROON COLORED STOOL. PER DAY RN PATIENT HAD HAD MULTIPLE EPISODES OF MAROON COLORED STOOL THROUGH OUT THE DAY. PATIENT CHANGED TO HIGH FLOW NASAL CANNULA PER RT AND O2 SAT IMPROVED. PT TOLERATING THERAPY WELL. SMALL AMOUT OF EPISTAXIS NOTED WHEN CHANGED. WILL CONTINUE TO MONITOR PATIENT.
[2018-11-15 05:13] LABS: CALCIUM 7.3 mg/dL (8.5-10.1); MAGNESIUM 2.1 mg/dL (1.8-2.4); PHOSPHORUS 2.3 mg/dL (2.5-4.9); POTASSIUM 3.9 mmol/L (3.5-5.1)
[2018-11-15 05:45] LABS: HEMOGLOBIN 12.8 gm/dL (14.0-18.0); MCH 33.7 pg (26.0-34.0); MCHC 33.6 g/dL (28.0-37.0); MCV 100.2 fL (80.0-100.0); RBC 3.79 mil/uL (4.50-6.00); RDW 13.8 % (10.5-14.5); WBC 17.6 thou/uL (4.0-11.0)
--- NOTE | 2018-11-15 08:23 | NUR ---
FOLLOWING FOR DC PLANNING. CLINCIAL INFO REVIEWED. PT IS OVER A WEEK POST OP FROM SBO AND EX LAP WITH SM BOWEL RESECTION. PATH SHOWS CARCINOID TUMOR. PLAN FOR CT WHEN MORE STABLE TO ASSESS FOR METS. PT WAS INFORMED BY DR. PARKER OF PATHOLOGY. PT WITH FAINT BOWEL SOUNDS AND HAD SM BM, PLAN TO START CLEAR LIQUIDS. WEANING O2 QAND CURRENTLY ON 9 LITERS NC. PT FROM HOME AND [employer]DEP[employer], NOW WITH SEVERE DEBILITY AND WILL NEED REHAB. DISCUSSED REHAB OPTIONS WITH PT'S VITA ERICKSON ON 11/11 AND SHE IS INTERESTED IN ACUTE REHAB EITHER [facility]. [facility] FOLLOWING AND FEELS PT GOOD CANDIDATE FOR ACUTE REHAB.
--- NOTE | 2018-11-15 13:36 | NUR ---
ASSUMED CARE OF PT AT 0645. UP TO CHAIR WITH THERAPY. SPEECH APPROVE FOR MECHANICAL SOFT DIET, THIN LIQUIDS. PT SELF DC NG TUBE. MAROON SMEAR X1. PT READY TO GET OUT OF ICU. CCTELE TX ORDERS.
--- NOTE | 2018-11-15 17:34 | NUR ---
Assumed care of patient at 1130. Patient had pulled out NG tube. Patient denies nausea, is passing flatus and having small, smear BMs. Ok'd by ST to start on mechanically chopped diet. Cleared by surgery to advance diet as tolerated and leave NG tube out. Remains on TPN and lipids at this time. Still remains on 7L NC to maintain sats. Working on IS, able to reach 2000 for 1 or 2 breaths, but fatigues quickly. Orders to transfer to [facility]. Will give report and transfer to room 216. Family at bedside, questions answered. Continue to monitor.
--- NOTE | 2018-11-15 18:31 | NUR ---
REPORT TAKEN FROM [facility] ICU/RN. PT TX TO ROOM 216 RESTING IN BED WITH CALL LIGHT IN REACH. WILL CONTINUE TO MONITOR.
[2018-11-16 03:38] VITALS: BP 123/72
--- NOTE | 2018-11-16 03:51 | NUR ---
ASSUMED CARE OF PT AT SHIFT CHANGE. ASSESSMENTS CHARTED. PT AOX4, VSS, NO C/O PAIN. DENIES CHEST PAIN. O2 SATS WNL ON 7L O2. NO S/SX OF CARDIAC OR RESP DISTRESS NOTED. URINE OUTPUT ADEQUATE, PT PASSED 3 LOOSE STOOLS OVERNIGHT. SR W/ BBB ON MONITOR. LAP SITES CONTINUE TO BE OPEN TO AIR WITH NO ABNORMALITIES. PT RESTED WELL DURING NIGHT. WILL CONTINUE TO MONITOR AND FOLLOW POC.
[2018-11-16 04:48] LABS: CALCIUM 8.1 mg/dL (8.5-10.1); CREATININE 0.9 mg/dL (0.7-1.3); POTASSIUM 4.1 mmol/L (3.5-5.1)
[2018-11-16 08:10] VITALS: BP 118/64
[2018-11-16 10:51] LABS: HEMATOCRIT 37.5 % (42.0-52.0); HEMOGLOBIN 12.6 gm/dL (14.0-18.0); MCH 33.4 pg (26.0-34.0); MCHC 33.5 g/dL (28.0-37.0); MCV 99.7 fL (80.0-100.0); PLATELET COUNT 106 thou/uL (150-400); RBC 3.76 mil/uL (4.50-6.00); RDW 13.5 % (10.5-14.5); WBC 18.9 thou/uL (4.0-11.0)
[2018-11-16 11:15] VITALS: BP 105/51
[2018-11-16 11:43] LABS: ABSOLUTE NEUTROPHILS 15.1 thou/uL (1.4-8.2); METAMYELOCYTES 3 %; MYELOCYTES 2 %
[2018-11-16 15:30] VITALS: BP 101/54
--- NOTE | 2018-11-16 18:22 | NUR ---
ASSUMED CARE AT SHIFT CHANGE, ALERT AND ORIENTED. DENIES ANY DISCOMFORT. UP IN THE CHAIR FOR DINNER AND PATIENT TOLERATED ACTIVITY WELL. SR/BBB ON THE MONITOR AND VSS AFEBRILE. PATIENT HAD LARGE BLOODY BM, AND ELENA NOTIFIED. NPO AFTER MN FOR EGD IN THE AM. AND WILL CONTNUE TO MONITOR.
[2018-11-16 19:18] VITALS: BP 112/58
[2018-11-16 21:58] LABS: HEMATOCRIT 35.5 % (42.0-52.0); HEMOGLOBIN 12.4 gm/dL (14.0-18.0); MCH 34.8 pg (26.0-34.0); MCV 99.7 fL (80.0-100.0); RBC 3.56 mil/uL (4.50-6.00); RDW 13.5 % (10.5-14.5); WBC 20.5 thou/uL (4.0-11.0)
[2018-11-17 04:31] VITALS: BP 117/55
--- NOTE | 2018-11-17 04:52 | NUR ---
ASSUMED CARE OF PT AT SHIFT CHANGE. ASSESSMENTS CHARTED. PT AOX4, FORGETFUL AT TIMES. VSS, PT UP MOD ASSIST. NO C/O PAIN THIS SHIFT, DENIES CHEST PAIN. O2 SATS WNL ON 7L O2. NO S/SX OF CARDIAC OR RESP DISTRESS NOTED. PLAN IS FOR PT TO HAVE EGD IN AM. WILL CONTINUE TO MONITOR AND FOLLOW POC.
[2018-11-17 04:53] LABS: HEMATOCRIT 34.2 % (42.0-52.0); HEMOGLOBIN 11.7 gm/dL (14.0-18.0); MCH 34.3 pg (26.0-34.0); MCHC 34.1 g/dL (28.0-37.0); MCV 100.5 fL (80.0-100.0); RBC 3.4 mil/uL (4.50-6.00); RDW 13.8 % (10.5-14.5); WBC 21.8 thou/uL (4.0-11.0)
[2018-11-17 05:02] LABS: ALBUMIN 2.3 g/dL (3.4-5.0); CREATININE 1.2 mg/dL (0.7-1.3); MAGNESIUM 1.9 mg/dL (1.8-2.4); PHOSPHORUS 3.5 mg/dL (2.5-4.9); POTASSIUM 4.1 mmol/L (3.5-5.1); TOTAL BILIRUBIN 1.3 mg/dL (<0.1-1.0)
[2018-11-17 08:39] VITALS: BP 110/65
--- NOTE | 2018-11-17 09:25 | NUR ---
PT OFF UNIT TO ENDOSCOPY
[2018-11-17 12:24] VITALS: BP 108/57
[2018-11-17 18:15] VITALS: BP 111/52
[2018-11-17 19:24] VITALS: BP 105/47
--- NOTE | 2018-11-18 03:05 | NUR ---
ASSUMED CARE OF PATIENT AROUDN 1900. PATIENT DENIES PAIN, N/V, DIZZINESS. PT BEGAN CALLING OUT AROUND MIDNIGHT, COUGHING AND SIGHING LOUDLY. UPON ASSESSMENT OF PATIENT, HE STATED THAT HE CAN'T BREATHE. ENCOURAGED PATIENT TO SLOW BREATHING DOWN AND TO INHALE THROUGH NOSE SINCE NASAL CANNULA IS IN PLACE. AFTER MUCH ENCOURAGEMENT, PATIENT ABLE TO SLOW BREATHING AND STATED SHORTNESS OF BREATH RESOLVED. PATIENT THEN ABLE TO SLEEP THE REST OF THE SHIFT. PATIENT IS PROGRESSING TOWARD GOALS, WILL CONTINUE TO MONITOR.
[2018-11-18 04:09] VITALS: BP 105/58
[2018-11-18 04:57] LABS: CALCIUM 7.9 mg/dL (8.5-10.1); CREATININE 1.2 mg/dL (0.7-1.3); PHOSPHORUS 2.2 mg/dL (2.5-4.9); POTASSIUM 3.9 mmol/L (3.5-5.1)
[2018-11-18 07:15] VITALS: BP 97/58
[2018-11-18] MEDS ORDERED: IPRAT-ALBUT 0.5-3 ML INH (08:03)
[2018-11-18 10:29] VITALS: BP 100/56
[2018-11-18 10:33] LABS: HEMATOCRIT 31.8 % (42.0-52.0); HEMOGLOBIN 10.4 gm/dL (14.0-18.0)
--- NOTE | 2018-11-18 11:19 | NUR ---
[address] [place] [address] CONSULT RECEIVED ON 11/14/18 AND GUY SCHWARTZ ASSESSED PATIENT. SEE ROLLER PRINTING SUPERVISOR'S CONSULT FOR DETAILS. PATIENT DEMONSTRATES MEDICAL COMPLEXITY AND THE NEED FOR INTENSIVE REHAB THERAPIES. ANTICIPATE PATIENT WILL BENEFIT FROM A [facility], ACUTE REHAB UNIT STAY. THIS DATE, HOWEVER, PATIENT IS NOT MEDICALLY READY FOR ACUTE REHAB. PER CM, PATIENT WITH HEMOPTYSIS. WILL CONTINUE TO FOLLOW AND HELP ASSESS PROGRESS/TOLERANCE/MEDICAL STABILITY FOR POSSIBLE ACUTE REHAB UNIT STAY. THANK YOU FOR THIS REFERRAL.
[2018-11-18 14:54] VITALS: BP 107/45
[2018-11-18 19:52] VITALS: BP 93/50
[2018-11-19 00:39] VITALS: BP 119/61
[2018-11-19 05:24] VITALS: BP 95/42
[2018-11-19 07:30] VITALS: BP 105/59
--- NOTE | 2018-11-19 07:49 | NUR ---
ASSUMED PT CARE AT 1900. VSS. PT A&0X4. ASSESSMENTS AND MEDS GIVEN ARE CHARTED. PT'S PILLS WERE GIVEN WITH APPLESAUCE LAST NIGHT AND HE TOLERATED THEM WELL. PT COMPLAINED OF PAIN IN HIS LEFT SIDE WHICH SEEMS TO BE RESOLVED WITH TYLENOL. PT HAD GOOD URINE OUTPUT OVERNIGHT, PT IS STABLE, WILL CONTINUE TO MONITOR PER POC.
[2018-11-19 11:12] LABS: HEMATOCRIT 31.7 % (42.0-52.0); HEMOGLOBIN 10.7 gm/dL (14.0-18.0); MCH 33.9 pg (26.0-34.0); MCHC 33.8 g/dL (28.0-37.0); MCV 100.2 fL (80.0-100.0); RBC 3.16 mil/uL (4.50-6.00); RDW 13.9 % (10.5-14.5); WBC 20.1 thou/uL (4.0-11.0)
[2018-11-19 11:23] LABS: ALBUMIN 1.9 g/dL (3.4-5.0); CALCIUM 7.8 mg/dL (8.5-10.1); CREATININE 1.5 mg/dL (0.7-1.3); POTASSIUM 3.7 mmol/L (3.5-5.1); TOTAL BILIRUBIN 1.1 mg/dL (<0.1-1.0); TOTAL PROTEIN 5.5 g/dL (6.4-8.2)
[2018-11-19 12:00] VITALS: BP 88/49
[2018-11-19 19:47] VITALS: BP 100/66
[2018-11-19 21:18] VITALS: BP 112/63
--- NOTE | 2018-11-19 23:25 | NUR ---
PT IS ALERT AND ORIENTED X 4. APPEARS TO BE SLOWLY PROGRESSING TOWARDS PLAN OF CARE. PT STATES THAT HE STILL DOES NOT FEEL WELL, BUT HE FEELS LIKE HE IS STARTING TO FEEL BETTER. STATES THAT HE HAS SOME MILD LEFT SIDED PAIN. HAS A HEATING PAD ON IT RIGHT NOW. WILL CONTINUE TO MONITOR.
[2018-11-20] VITALS (7 sets, daily range): BP systolic 79–101; BP diastolic 40–59
[2018-11-20 10:18] LABS: HEMOGLOBIN 11.5 gm/dL (14.0-18.0); MCH 34.1 pg (26.0-34.0); MCV 100.2 fL (80.0-100.0); RBC 3.39 mil/uL (4.50-6.00); RDW 14.5 % (10.5-14.5); WBC 16.5 thou/uL (4.0-11.0)
[2018-11-20 10:40] LABS: CALCIUM 8.1 mg/dL (8.5-10.1); CREATININE 1.5 mg/dL (0.7-1.3); POTASSIUM 3.7 mmol/L (3.5-5.1); TOTAL BILIRUBIN 0.3 mg/dL (<0.1-1.0)
[2018-11-20 12:22] LABS: TOTAL PROTEIN 6.1 g/dL (6.4-8.2)
--- NOTE | 2018-11-20 13:23 | NUR ---
ASSUMED CARE OF PT AT 0700. PT ANSWERS ALL ORIENTATION QUESTION BUT IS SLOW TO RESPOND. FOLLOWS COMMANDS. PT AFFECT IS FLAT/DEPRESSED. PT HAD LOW BLOOD PRESSURE AND DR. PARKER CALLED. ORDERED BOLUS 500ML NS AND STATED PT COULD GO TO REHAB. PT UP TO TRANSFER TO CHAIR WITH MOD ASSIST, PT WEAK AND UNSTEADY. WILL CONT WITH POC.
== END 2018-11-20 18:22 | DRG 853 ==
LOC: CAT 08:44 → LABMALL 08:44 → 4W 11:44 → ICU 11:44 → 2N 11-15 18:36
PROVIDERS: Anesthesiology; Hospitalist; Internal Medicine Gastroenterology; Internal Medicine Nephrology; Internal Medicine Pulmonary Disease; Pediatrics; Surgery; ADMIT Family Medicine
PROC: 0BH17EZ Insertion of Endotracheal Airway into Trachea, Via Natural or Artificial Opening (ICD-10-PCS; principal; 2018-11-06)
PROC: 02HV33Z Insertion of Infusion Device into Superior Vena Cava, Percutaneous Approach (ICD-10-PCS; principal; 2018-11-06)
PROC: 0DB84ZZ Excision of Small Intestine, Percutaneous Endoscopic Approach (ICD-10-PCS; principal; 2018-11-06)
PROC: 5A1955Z Respiratory Ventilation, Greater than 96 Consecutive Hours (ICD-10-PCS; principal; 2018-11-06)
PROC: 0D9670Z Drainage of Stomach with Drainage Device, Via Natural or Artificial Opening (ICD-10-PCS; principal; 2018-11-06)
PROC: 0BJ08ZZ Inspection of Tracheobronchial Tree, Via Natural or Artificial Opening Endoscopic (ICD-10-PCS; principal; 2018-11-06)
PROC: 0DJD8ZZ Inspection of Lower Intestinal Tract, Via Natural or Artificial Opening Endoscopic (ICD-10-PCS; 2018-11-17)
PROC: 0DJ08ZZ Inspection of Upper Intestinal Tract, Via Natural or Artificial Opening Endoscopic (ICD-10-PCS; 2018-11-17)
DX: A41.9 Sepsis, unspecified organism (principal); J69.0 Pneumonitis due to inhalation of food and vomit; J96.01 Acute respiratory failure with hypoxia; J96.02 Acute respiratory failure with hypercapnia; N17.0 Acute kidney failure with tubular necrosis; E43 Unspecified severe protein-calorie malnutrition; K29.71 Gastritis, unspecified, with bleeding; K56.609 Unspecified intestinal obstruction, unspecified as to partial versus complete obstruction; I47.1 Supraventricular tachycardia; G93.40 Encephalopathy, unspecified; C7A.019 Malignant carcinoid tumor of the small intestine, unspecified portion; T18.3XXA Foreign body in small intestine, initial encounter; I73.9 Peripheral vascular disease, unspecified; I10 Essential (primary) hypertension; R73.9 Hyperglycemia, unspecified; I25.10 Atherosclerotic heart disease of native coronary artery without angina pectoris; X58.XXXA Exposure to other specified factors, initial encounter; I72.2 Aneurysm of renal artery; I45.10 Unspecified right bundle-branch block; I71.4 Abdominal aortic aneurysm, without rupture; D64.9 Anemia, unspecified; R04.0 Epistaxis; R65.20 Severe sepsis without septic shock; L30.9 Dermatitis, unspecified; E03.9 Hypothyroidism, unspecified; E87.6 Hypokalemia; Z68.28 Body mass index [BMI] 28.0-28.9, adult; Y93.9 Activity, unspecified; Y92.89 Other specified places as the place of occurrence of the external cause; Y99.8 Other external cause status; Z95.1 Presence of aortocoronary bypass graft; Z95.820 Peripheral vascular angioplasty status with implants and grafts; Z90.49 Acquired absence of other specified parts of digestive tract; Z79.82 Long term (current) use of aspirin; Z79.899 Other long term (current) drug therapy; Z82.49 Family history of ischemic heart disease and other diseases of the circulatory system
CPT/HCPCS: 10078; 10081; 50010; 50093; 50101; 50249; 50386; 50455; 50525; 50555; 50607; 51435; 51708; 51712; 52265; 53307; 54118; 56525; 56526; 56530; 57092; 62110; 62900; 65020; 65040; 65130; 65131; 70005

== ENCOUNTER 2018-11-18 10:34 | Inpatient (IN) | payer OTHER ==
[~2018-11-18] VITALS: Ht 188 cm; Wt 100.9 kg
--- NOTE | ~2018-11-18 | PLAN ---
[facility] [place] [address] [place] [address] REHAB UNIT PLAN OF CARE Name: LUIS BERMUDEZ Room #: 511-P ADM IN M.R.#: [id number] Admission: 11/20/18 Attend Phys: Jae Brooks MD Discharge: Date of : 33 Report #: [id number] THIS REPORT FOR: //name// CC: Jae Lima DATE OF SERVICE: 11/22/2018 PROGRESS NOTE/OVERALL PLAN OF CARE SUBJECTIVE: The patient is seen back today in followup. He is in no distress. OBJECTIVE: VITAL SIGNS: Last recorded temperature 98.1, pulse 81, respirations 20, blood pressure is 99/49. GENERAL: He is in no distress. Affect, appears a little more positive. He is currently on 4 liters nasal cannula. NEUROLOGIC: No calf swelling. He did transfer with mod assist, but when getting up, he was able to ambulate 35 feet mod assist with a front-wheeled walker. In occupational therapy, lower body dressing was dependent. In speech therapy, he is on a mechanical soft diet with thin liquids. He is being evaluated regarding cognitive issues. ASSESSMENT: 1. Metabolic encephalopathy. 2. Critical illness myopathy. 3. Sepsis. 4. Acute aspiration pneumonia with respiratory failure. 5. Coronary artery disease with recent supraventricular tachycardia episodes. 6. 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 7. Small bowel obstruction, secondary to ingested foreign body, status post resection. 8. Elevated LFTs. 9. Hypertension. 10. Protein-calorie malnutrition. 11. Acute hypercapnic hypoxemic respiratory failure. PLAN: The overall plan of care is based on the preadmission screen, post-admission physician evaluation and information garnered from therapy assessments. 1. Estimated length of stay is probably at least 2-3 weeks and potentially longer. 2. Medical prognosis is reasonably good. 3. Anticipated interventions include the interdisciplinary acute inpatient rehabilitation program with PT and OT and speech, and rehab nursing assisting regarding medication management, skin care prophylaxis, bowel and bladder issues [address] [address] REHAB UNIT PLAN OF CARE Name: LUIS BERMUDEZ FLOURTOWN Room #: 511-P [facility] IN M.R.#: [id number] Admission: 11/20/18 Attend Phys: Jae Brooks MD Discharge: Date of : 33 Report #: [id number] and nursing education. Case management is involved as well as the rehab therapy team and consulting physicians. 4. Anticipated functional outcomes would be for the patient to become modified independent with transfers, mobility and ADLs at least at the walker level as well as improvement in cognition so that he can return back to the home setting. 5. Discharge destination would be back to the home setting where he lives at home alone but does have supportive children. 6. Expected therapy by discipline includes PT and OT and speech 1 hour per day, each five days a week throughout the duration of the acute inpatient rehabilitation stay. By: 0824 [id number] Jae Brooks MD /hina
--- NOTE | ~2018-11-18 | H ---
[facility] [place] [place] [address] HISTORY AND PHYSICAL Name: LUIS BERMUDEZ Room #: 511-P ADM IN M.R.#: [id number] Admission: 11/20/18 Attend Phys: Jae Brooks MD Discharge: Date of : 33 Report #: [id number] THIS REPORT FOR: //name// CC: Jae Lima DATE OF SERVICE: 11/21/2018 HISTORY OF PRESENT ILLNESS: The patient is an 83-year-old white male originally admitted to [facility] on 11/06/2018 with a small-bowel obstruction secondary to ingestion of a foreign body (a dental implant with bridge). He underwent diagnostic laparotomy with resection on 11/06/2018. His pathology report found carcinoid tumor. He remained in the intensive care unit, mechanically ventilated on Levophed, developed aspiration pneumonia, acute respiratory failure, needing IV antibiotics ____ corticosteroids. He had episodes of supraventricular tachycardia followed by Cardiology, started on amiodarone. He has had problems with significant generalized weakness and clinical evidence for a critical illness myopathy with his ongoing Intensive Care Unit stay, intubation, severe sepsis and multiple medical comorbidities. He also has had problems with confusion, disorientation, sundowning and has been diagnosed with an encephalopathy, which appears metabolic in etiology. He has gradually improved as far as his tolerance for therapies and has now felt to be ready and admitted for acute in-hospital inpatient rehabilitation. PAST MEDICAL HISTORY: Includes hypertension, coronary artery disease, status post coronary bypass grafting, and peripheral arterial disease. PAST SURGICAL HISTORY: Cardiac bypass, open cholecystectomy, left femoral endarterectomy, and right iliac stent. ALLERGIES: No known drug allergies. MEDICATIONS: Please see the full medication listing. This includes vitamins, herbals, and supplements per my review. SOCIAL HISTORY: Lives at home alone, was independent with ADLs and IADLs, still driving, playing golf and a mall walker. Denied use of assistive devices. Three children noted to be supportive and can provide assist at home per report. He has 2 small entry stairs. No stairs inside the house. HABITS: No history of alcohol, drug abuse. Nonsmoker. REVIEW OF SYSTEMS: He has significant weakness, not sleeping well. No chest pain, shortness of breath, abdominal discomfort. No nausea, no complaints of fever or chills. No numbness or tingling. Denies focal extremity pain complaints. [facility] [address] [place] [address] HISTORY AND PHYSICAL Name: LUIS BERMUDEZ Room #: 511-P [facility] IN .R.#: [id number] Admission: 11/20/18 Attend Phys: Jae Brooks MD Discharge: Date of : 33 Report #: [id number] PHYSICAL EXAMINATION: GENERAL: An 83-year-old white male in no obvious distress. VITAL SIGNS: Last recorded temperature 98.1, pulse 60, respirations 21, blood pressure is 91/49. There is a definite latency to his responses, but he will follow 1-step commands. He tends to be somewhat concrete in his thinking with decreased insight. HEENT: Appeared to be benign. Facies were symmetric. He is on nasal prong O2, currently 3 liters. CHEST: Some diffuse decreased breath sounds. CARDIOVASCULAR: Sounded regular rate and rhythm. ABDOMEN: Midline incisions appear to be healing well. Bowel sounds positive, nontender. GENITOURINARY AND RECTAL: Deferred. EXTREMITIES: He has functional range of motion of the upper extremities. Strength is grade 3+ to 4-/5. DTRs are trace to 1. Tone appeared to be intact. Lower extremities, no focal calf swelling, functional range of motion with strength grade 3+ to 4-/5. DTRs are trace to 1. Tone is intact. Functionally, he is mod assist with sit to stand, mod assist, ambulate 2 feet with a front-wheeled walker. ASSESSMENT: An 83-year-old white male with the following problem list: 1. Metabolic encephalopathy. 2. Critical illness myopathy. 3. Sepsis. 4. Acute aspiration pneumonia with respiratory failure. 5. Coronary artery disease with recent SVT episodes. 6. Carcinoid tumor found on pathological report. 7. Small-bowel obstruction secondary to ingested foreign body, status post resection. 8. Elevated LFTs. 9. Hypertension. 10. Protein-calorie malnutrition. 11. Acute hypercapnic, hypoxemic respiratory failure. ADDENDUM PROBLEM LIST: Includes: 1. Continuing mild epistaxis, likely due to high flow O2. 2. Aspiration pneumonia, slowly improving. 3. Acute renal insufficiency, improved. 4. 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 PLAN: The patient is admitted for acute in-hospital inpatient rehabilitation. From a postadmission physician evaluation perspective, there are no relevant changes since the preadmission screening. Please see the above review of prior [facility] [address] [facility] [place] [address] HISTORY AND PHYSICAL Name: LUIS BERMUDEZ Room #: 511-P ADM IN M.R.#: [id number] Admission: 11/20/18 Attend Phys: Jae Brooks MD Discharge: Date of : 33 Report #: [id number] and current medical and functional conditions and comorbidities. Please see the patient's previous and current functional status. As far as risk of complications, the patient has multiple medical comorbidities as noted above. The initial plan of care involves the interdisciplinary acute inpatient rehabilitation program with goal of maximizing the patient's functional independence, so that he can hopefully return back to his prior living situation. Measurable functional goals would be for the patient to become modified independent with transfers, mobility, ADLs, cognition, so that he can return back to the home setting. Prognosis is reasonably good with estimated length of stay, likely at least 2-3 weeks pending progress. Potential barriers would include the patient's multiple medical comorbidities and decreased functional status. The patient meets diagnostic criteria for an acute in-hospital inpatient rehabilitation stay. He meets medical necessity criteria and we will have the multiple interior design consultant physicians that are following. Continue to follow with the patient while he is on the rehab payne. He does have the tolerance for therapies and has appropriate discharge goals back to the home setting. By: [id number] Jae Brooks MD /nt
[~2018-11-18 10:34] MED LIST changes: +ALENDRONATE SOD70 MG PO; +IPRAT-ALBUT 0.5-3 ML INH; +ZOLOFT25 MG PO
[2018-11-20 19:16] VITALS: BP 120/60
--- NOTE | 2018-11-20 19:18 | NUR ---
SPOKE WITH DR. PARKER TO CLARIFY MEDICATION ORDERS. ORDERS REPEATED BACK TO PHYSICIAN, CLARIFIED WITH PHARMACIST. PATIENT IS TO CONTINUE MEDS FROM MOST RECENT ACUTE ADMISSION FOLLOWS: IV ANTIBIOTIC THERAPY FOR 2 MORE DAYS, CONTINUE PRN ACETAMINOPHEN, HOLD LOVENOX, HOLD IV LASIX DOSE AND RESUME TOMORROW. NEW ORDER FOR PROTONIX: 40 MG PO BID DAILY. COMMUNICATED TO PUBLIC HEALTH INFORMATICIAN RN. PATIENT RESTING IN BED. VSS. PATIENT AND PATIENT'S DAUGHTER GEORGINA ORIENTED TO UNIT. FALL PRECAUTIONS IN PLACE. WILL CONTINUE TO MONITOR.
--- NOTE | 2018-11-21 01:07 | NUR ---
PT ADMITTED TO [facility] VIA W/C AT 1830 LAST EVENING. PT ALERT AND ORIENTED X 2-3, CONFUSED AT TIMES. PT VERY IRRITABLE DURING ADMISSION PROCESS. DID NOT WANT TO ANSWER QUESTIONS. DAUGHTER STATED SHE WOULD BE IN TOMORROW MORNING TO ANSWER ADMISSION QUESTIONS. 02 0N AT 3L PER NC CONT. 02 SAT 94%. RSC INTACT AND PATENT. PT HAS RASH OVER ENTIRE BODY. REPORT FROM DAY NURSE THAT DR'S ARE AWARE OF RASH. PT DENIES PAIN OR DISCOMFORT. ORIENTED TO ROOM AND USE OF CALL LIGHT. FALL PRECAUTIONS DISCUSSED WITH PT. CONSENTS SIGNED. CONSULTS CALLED. BED ALARM ON FOR SAFETY. PT CHECKED ON HOURLY ROUNDS.
[2018-11-21 05:27] LABS: HEMATOCRIT 30.9 % (42.0-52.0); HEMOGLOBIN 10.3 gm/dL (14.0-18.0); MCH 33.5 pg (26.0-34.0); MCHC 33.3 g/dL (28.0-37.0); MCV 100.5 fL (80.0-100.0); RBC 3.08 mil/uL (4.50-6.00); RDW 14.6 % (10.5-14.5); WBC 11.7 thou/uL (4.0-11.0)
[2018-11-21 05:48] LABS: CALCIUM 7.7 mg/dL (8.5-10.1); CREATININE 1.2 mg/dL (0.7-1.3); POTASSIUM 3.7 mmol/L (3.5-5.1)
[2018-11-21 07:38] VITALS: BP 91/49
--- NOTE | 2018-11-21 08:47 | NUR ---
ASSUMED CARE AT 0700. PATIENT IS ALERT AND ORIENTED X2. PATIENT ALISSA. ENGAGEMENT MANAGER ARE EQUAL. LUNGS ARE CLEAR AND DEMINISHED. SOME SOA. PATIENT IS ON RESPTIRATORY TX, AND 02 AT 3L PER N/C. S.T. HERE TO SEE PATIENT WITH BREAKFAST. ABD IS SOFT WITH BSX4 . VOIDS PER URINAL. PATIENT HAS GENERALIZED RASH ALL OVER HIS BODY. PATIENT HAS TRIPLE LUMIN CATHETER ALL PORTS FLUSH WELL PATIENT IS ON IV ABT. FALL AND SAFETY PROTOCOLS IN PLACE. DENIES ANY PAIN AT THIS TIME. CONTINUES TO PROGESS SLOWLY TOWARDS D/C GOALS. WILL CONTINUE TO MONITER.
[2018-11-21 11:56] LABS: INR 1.1; PROTIME 11.4 Seconds (9.3-11.4)
--- NOTE | 2018-11-21 13:03 | NUR ---
VISITED WITH PT/ DAUGHTER GEORGINA AT BEDSIDE RT RN AMBER MACEP, TEAM MEETING. "INDEPENDENT PRIOR TO THIS, DROVE HIMSELF HERE. NO MEDICAL EQUIP AT HOME. NO HOME OXYGEN"/GEORGINA. PT IS CURRENTLY REQUIRING O2 PER NASAL CANNULA. TEAM MEETING, RECOMMENDATION RE-TEAM NEXT WEEK.
[2018-11-21 18:10] LABS: IgG 490 mg/dL (700-1600)
[2018-11-21 19:35] VITALS: BP 99/49
--- NOTE | 2018-11-22 03:06 | NUR ---
Assumed care of pt at 1915. Pt alert and oriented x2, calm and cooperative. Denies dypsnea, nausea or pain. Taking po fluids frequently, voiding clear brenna urine per urinal. Has only slept for very short intervals through the night, instead watching television. Checked on hourly rounds.
[2018-11-22 06:47] LABS: ALBUMIN 1.6 g/dL (3.4-5.0); DIRECT BILIRUBIN 0.3 mg/dL (<0.1-0.3); TOTAL BILIRUBIN 0.7 mg/dL (<0.1-1.0); TOTAL PROTEIN 5.3 g/dL (6.4-8.2)
[2018-11-22 07:15] VITALS: BP 96/57
[2018-11-22 07:15] LABS: HAV IgM AB (ANTI-HAV IgM) Negative (Negative); HEPATITIS B SURFACE AG Negative (Negative); HEPATITIS C VIRUS AB 0.1 (0.0-0.9)
--- NOTE | 2018-11-22 11:42 | NUR ---
Nutrition follow-up: Pt admitted for SBO and aspiration PNA. Pt now on a mechanical altered diet w/ Ensure Clear TID. Per nursing, pt is drinking Ensure and is slowly improving PO intake. Weight improving. Will change Ensure Clear to Ensure Enlive TID. With nutrition interventions in place, consider low risk.
[2018-11-22 14:10] LABS: CERULOPLASMIN 28.6 mg/dL (16.0-31.0)
--- NOTE | 2018-11-22 14:28 | NUR ---
ASSUMED CARES AT 0700. PT IN BED, AWAKE, A/O*4. DEPRESSED + FLAT AFFECT. DOESN'T RESPOND TO ALL QUESTIONS, DOES NOT INITIATE CONVERSATION. VITALS STABLE. PT DENIES PAIN. ON 4L OXYGEN VIA NC WITH SATS >95%, LS CLEAR. THICK WHITISH ORAL SECRETIONS NOTED THIS AM, ORAL CARE GIVEN. PT STATED THAT HE DIDN'T SLEEP WELL IN THE NOC. PT UP WITH 1 PERSON MOD ASSIST, AMBULATED SHORT DISTANCE. Q1H VISUAL CHECKS. FALL PRECAUTIONS IN PLACE. CALL LIGHT WITHIN REACH
--- NOTE | 2018-11-22 15:07 | NUR ---
GEORGINA, PT'S DAUGHTER REQUESTS FOR BENADRYL FOR HER DAD INSOMMIA AND ITCHING. DR. PARKER IS OUT OF TOWN. CALLED AND RECEIVED T.O FROM ARGELIA ANTON. WILL CONTINUE TO MONITOR BY MILTON CORDOVA.
[2018-11-22 19:32] VITALS: BP 115/58
--- NOTE | 2018-11-23 02:44 | NUR ---
assumed care at approx 1900 evening 11/22. pt lying in bed with head of bed elevated resting at change of shift. pt voiding per urinal. pt took hs meds with water tolerating well. pt denies pain. pt had small bm earlier in evening on bedpan. pt appears to be sleeping soundly with hourly rounding checks. bed alarm on and call light in reach. will continue to monitor,
[2018-11-23 06:08] LABS: ABSOLUTE NEUTROPHILS 10.9 thou/uL (1.4-8.2); BASOPHILS 0.6 % (0.0-2.0); EOSINOPHILS 7.2 % (0.0-3.0); HEMOGLOBIN 10.5 gm/dL (14.0-18.0); LYMPHOCYTES 8.1 % (24.0-44.0); MCH 33.7 pg (26.0-34.0); MCHC 33.9 g/dL (28.0-37.0); MCV 99.5 fL (80.0-100.0); MONOCYTES 4.6 % (1.0-8.0); PLATELET COUNT 188 thou/uL (150-400); POLYS 79.5 % (36.0-66.0); RBC 3.12 mil/uL (4.50-6.00); RDW 14.5 % (10.5-14.5); WBC 13.7 thou/uL (4.0-11.0)
[2018-11-23 06:18] LABS: CALCIUM 7.7 mg/dL (8.5-10.1); CREATININE 1.5 mg/dL (0.7-1.3); MAGNESIUM 2.1 mg/dL (1.8-2.4); POTASSIUM 3.4 mmol/L (3.5-5.1)
[2018-11-23 07:45] VITALS: BP 92/49
--- NOTE | 2018-11-23 11:00 | NUR ---
ASSUMED CARES AT 0700. PT IN BED AWAKE, ORIENTED TO SELF AND PLACE. VITALS STABLE. LUNG SOUNDS CLEAR WITH SATS >92% ON 4L OXYGEN VIA NC. AT 0800 THIS NURSE GOT PT IN SITTING POSITION AND PT HAD HIS BREAKFAST, ATE 25-30%. ANOTHER RN PICKED UP HIS TRAY AND THE PT WAS SITTING UPRIGHT ASLEEP, SNORING LOUDLY. THIS NURSE WENT INTO PT ROOM 10 MINUTES LATER AND NOTICED THAT THE PT HAD THROWN AWAY HIS COVERS AND WAS INCONTINENT OF BLADDER. NOTICED THE PT HAD LABORED BREATHING AND WAS PALE, CHECKED HIS PULSE (PRESENT BUT FAINT), CALLED OUT HIS NAME AND TRIED TO AROUSE HIM BUT HE DIDN'T RESPOND. THIS NURSE THEN CALLED BENCH WORKER HELPER AND CODE TEAM (SEE CODE NOTES). PT DID NOT RECOVER AND AT 1045. FAMILY CONTACTED, FAMILY HERE DURING THE CODE.
[2018-11-25 13:11] LABS: ANA INTERPRETATION Negative (Negative)
== END 2018-11-23 10:46 | DRG 91 ==
PROVIDERS: Nurse Practitioner; ADMIT Physical Medicine & Rehabilitation
PROC: 0BH17EZ Insertion of Endotracheal Airway into Trachea, Via Natural or Artificial Opening (ICD-10-PCS; principal; 2018-11-23)
PROC: 5A12012 Performance of Cardiac Output, Single, Manual (ICD-10-PCS; principal; 2018-11-23)
DX: G72.81 Critical illness myopathy (principal); G93.41 Metabolic encephalopathy; A41.9 Sepsis, unspecified organism; J69.0 Pneumonitis due to inhalation of food and vomit; J96.01 Acute respiratory failure with hypoxia; J96.02 Acute respiratory failure with hypercapnia; R40.20 Unspecified coma; K92.1 Melena; C7A.019 Malignant carcinoid tumor of the small intestine, unspecified portion; N17.9 Acute kidney failure, unspecified; R04.2 Hemoptysis; K56.609 Unspecified intestinal obstruction, unspecified as to partial versus complete obstruction; E44.0 Moderate protein-calorie malnutrition; I10 Essential (primary) hypertension; I25.10 Atherosclerotic heart disease of native coronary artery without angina pectoris; I73.9 Peripheral vascular disease, unspecified; Z60.2 Problems related to living alone; R74.0 Nonspecific elevation of levels of transaminase and lactic acid dehydrogenase [LDH]; D53.9 Nutritional anemia, unspecified; R53.81 Other malaise; I71.4 Abdominal aortic aneurysm, without rupture; T18.3XXA Foreign body in small intestine, initial encounter; X58.XXXA Exposure to other specified factors, initial encounter; Z95.1 Presence of aortocoronary bypass graft; Z90.49 Acquired absence of other specified parts of digestive tract; Z68.28 Body mass index [BMI] 28.0-28.9, adult; Y93.89 Activity, other specified; Y92.89 Other specified places as the place of occurrence of the external cause; Y99.8 Other external cause status
CPT/HCPCS: 10112